=== PATIENT | female | born 1980 | race African-American/Black ===

== ENCOUNTER 2016-09-03 05:10 | Emergency (ER) | payer OTHER ==
[~2016-09-03] VITALS: Ht 162.6 cm; Wt 68.2 kg
[~2016-09-03 05:10] MED LIST: ATOR40TA28 PO; CLOP75 PO; DEPOP150I IM; FAMO20 PO; MIRT30 PO; OLAN7.5T2 PO
[2016-09-03] MEDS ORDERED: BACTDSB PO (05:26)
[2016-09-03] MEDS ORDERED: OXYC-341 PO (05:26)
[2016-09-03] MEDS ORDERED: AMOX500C2 PO (05:26)
[2016-09-03] MEDS ORDERED: OXYC20TA79 PO (05:26)
[2016-09-03] MEDS ORDERED: CEFTAROLINE 600 MG/D5W 250 ML IV ONE (06:30)
[2016-09-03] MEDS ORDERED: ONDANSETRON HCL 4 MG/2 ML VIAL IVP ONE (06:30)
[2016-09-03] MEDS ORDERED: MORPHINE SULFATE 4 MG/ML SYRINGE IVP ONE (06:30)
[2016-09-03] MEDS ORDERED: MethylPREDNISolone SOD SUCC 125 MG/2 ML VIAL IVP ONE (07:30)
[2016-09-03 09:30] VITALS: BP 131/77
[2016-09-03] MEDS ORDERED: HYDROmorphone 2 MG/ML SYRINGE IVP ONE (09:30)
== END 2016-09-03 09:43 | disposition home or self-care (01) ==
LOC: EMS 05:15
DX: G89.18 Other acute postprocedural pain (principal); M79.671 Pain in right foot; E78.00 Pure hypercholesterolemia, unspecified; F12.90 Cannabis use, unspecified, uncomplicated; Z88.6 Allergy status to analgesic agent
CPT/HCPCS: 96365; 96366; 96374; 96375; 99285; J0712; J1170; J2270; J2405; J2930

== ENCOUNTER 2016-11-27 02:48 | Emergency (ER) | payer OTHER ==
[~2016-11-27] VITALS: Ht 162.6 cm; Wt 73.6 kg
[~2016-11-27 02:48] MED LIST changes: +AMOX500C2 PO; +BACTDSB PO; +OXYC-341 PO; +OXYC20TA79 PO
[2016-11-27] MEDS ORDERED: PANT40TA25 PO (03:01)
[2016-11-27 03:13] LABS: APPEARANCE,URINE CLOUDY (CLEAR); GLUCOSE, URINE (UA) NEGATIVE (NEGATIVE); KETONES,URINE NEGATIVE (NEGATIVE); LEUKOCYTE ESTERASE ,URINE MODERATE (NEGATIVE); OCCULT BLOOD,URINE NEGATIVE (NEGATIVE); PROTEIN,URINE TRACE (NEGATIVE)
[2016-11-27 03:15] LABS: ADD UA MICROSCOPIC YES
[2016-11-27 03:18] LABS: RBC,URINE 0-2 /HPF (0-2); SQUAMOUS EPITHELIAL CELL,UR Moderate /LPF (None Seen)
[2016-11-27 03:23] LABS: BASOPHILS % (AUTO) 0.4 % (0.0-2.0); EOSINOPHILS % (AUTO) 1.4 % (1.0-6.0); HEMATOCRIT 39.3 % (36-46); HEMOGLOBIN 12.5 g/dL (12.0-16.0); LYMPHOCYTES # (AUTO) 2.4 K/uL (1.0-4.8); MEAN CORPUSCULAR HGB CONC 31.9 G/dL (31.0-37.0); MEAN CORPUSCULAR VOLUME 85 fL (80-100); MONOCYTES # (AUTO) 0.5 K/uL (0.1-1.0); MONOCYTES % (AUTO) 7.4 % (2.0-9.0); NEUTROPHILS # (AUTO) 3.3 K/uL (1.8-7.7); NEUTROPHILS % (AUTO) 52.8 % (40.0-70.0); PLATELET COUNT (AUTO) 293 K/uL (150-450); RED BLOOD CELL COUNT(AUTO) 4.64 MIL/uL (4.00-5.20); RED CELL DISTRIBUTION WIDTH 14.5 % (11.5-14.5); WHITE BLOOD COUNT (AUTO) 6.3 K/uL (4.5-11.0)
[2016-11-27 03:31] LABS: ANION GAP 14 mmol/L (8-16); CALCIUM, TOTAL 8.5 mg/dL (8.8-10.5); CARBON DIOXIDE 21 mmol/L (22-29); CHLORIDE 108 mmol/L (98-107); CREATININE 0.92 mg/dL (0.60-1.30); GLOMERULAR FILTR. RATE CALC > 60 mL/min (>60); POTASSIUM 3.4 mmol/L (3.5-5.1); SODIUM SERUM 143 mmol/L (136-145); UREA NITROGEN, BLOOD 13 mg/dL (7-18)
[2016-11-27 03:37] LABS: ALANINE AMINOTRANSFERASE 32 U/L (12-78); ALBUMIN 3.6 g/dL (3.4-5.0); AMYLASE 113 U/L (25-115); ASPARTATE AMINOTRANSFERASE 18 U/L (15-37); BILIRUBIN,TOTAL 0.5 mg/dL (0.1-1.0); TOTAL PROTEIN, SERUM 7.6 g/dL (6.4-8.2)
[2016-11-27] MEDS ORDERED: SODIUM CHLORIDE 0.9% 1,000 ML IV ONE (05:30)
[2016-11-27] MEDS ORDERED: ONDANSETRON HCL 4 MG/2 ML VIAL IM ONE (05:45)
[2016-11-27] MEDS ORDERED: MORPHINE SULFATE 4 MG/ML SYRINGE IM ONE (05:45)
[2016-11-27 07:04] VITALS: BP 129/76
== END 2016-11-27 07:06 | disposition home or self-care (01) ==
LOC: EMS 02:49
DX: N39.0 Urinary tract infection, site not specified (principal); E78.00 Pure hypercholesterolemia, unspecified; F12.90 Cannabis use, unspecified, uncomplicated; Z88.1 Allergy status to other antibiotic agents; Z88.6 Allergy status to analgesic agent
CPT/HCPCS: 36415; 80053; 81001; 82150; 83690; 84703; 85025; 87086; 96372; 99284; J2270; J2405